=== PATIENT | female | born 1940 | race African-American/Black ===

== ENCOUNTER 2022-03-02 07:32 | Inpatient (IN) | payer MEDICARE ==
[~2022-03-02] VITALS: Ht 167.6 cm; Wt 49.2 kg
[2022-03-02] MEDS ORDERED: INSLAN SQ (07:43)
[2022-03-02] MEDS ORDERED: ATOR10TA PO (07:43)
[2022-03-02] MEDS ORDERED: ACETAMINOPHEN 500 MG TABLET PO ONE (08:00)
[2022-03-02] MEDS ORDERED: SODIUM CHLORIDE 0.9% 1,000 ML IV ONE ×2 (08:00→22:00)
[2022-03-02 08:32] LABS: COVID AG,FIA SOURCE NASOPHARYNGEAL
[2022-03-02 08:45] LABS: BASOPHILS % (AUTO) 0.5 % (0.0-2.0); EOSINOPHILS % (AUTO) 0.5 % (1.0-6.0); HEMATOCRIT 42.7 % (36-46); HEMOGLOBIN 13.9 g/dL (12.0-16.0); LYMPHOCYTES % (AUTO) 15.9 % (22.0-44.0); MEAN CORPUSCULAR HEMOGLOBIN 31.6 pg (26.0-34.0); MEAN CORPUSCULAR HGB CONC 32.6 G/dL (31.0-37.0); MEAN CORPUSCULAR VOLUME 97 fL (80-100); MONOCYTES # (AUTO) 0.5 K/uL (0.1-1.0); MONOCYTES % (AUTO) 7.8 % (2.0-9.0); NEUTROPHILS # (AUTO) 4.7 K/uL (1.8-7.7); NEUTROPHILS % (AUTO) 75.3 % (40.0-70.0); PLATELET COUNT (AUTO) 130 K/uL (150-450); RED CELL DISTRIBUTION WIDTH 14.6 % (11.5-14.5)
[2022-03-02 08:48] LABS: CREATININE 1.31 mg/dL (0.60-1.30); POTASSIUM 4.5 mmol/L (3.5-5.1)
[2022-03-02 08:51] LABS: APPEARANCE,URINE CLEAR (CLEAR); BILIRUBIN,URINE NEGATIVE (NEGATIVE); GLUCOSE, URINE (UA) >=1000 mg/dL (NEGATIVE); KETONES,URINE =>150 mg/dL (NEGATIVE); LEUKOCYTE ESTERASE ,URINE NEGATIVE (NEGATIVE); NITRATE,URINE NEGATIVE (NEGATIVE); OCCULT BLOOD,URINE NEGATIVE (NEGATIVE); PROTEIN,URINE 30-70 mg/dL (NEGATIVE); SPECIFIC GRAVITIY, URINE 1.025 (1.003-1.030); UROBILINOGEN,URINE <=1.0 mg/dL (<=1.0)
[2022-03-02 08:55] LABS: INFLUENZA TYPE A NEGATIVE FOR TYPE A (NEGATIVE); INFLUENZA TYPE B NEGATIVE FOR TYPE B (NEGATIVE)
[2022-03-02 08:56] LABS: PLATELET MORPHOLOGY COMMENT LARGE PLTS PRESENT
[2022-03-02] MEDS ORDERED: INSULIN REGULAR, HUMAN 100 UNITS in SODIUM CHLORIDE 0.9% 99 ML IV PRN ×2 (09:00)
[2022-03-02] MEDS ORDERED: SODIUM CHLORIDE 0.45% 1,000 ML IV PRN (09:00)
[2022-03-02] MEDS ORDERED: POTASSIUM CHL 20 MEQ/0.45% NS 1,000 ML IV PRN (09:00)
[2022-03-02] MEDS ORDERED: SODIUM CHLORIDE 0.9% 1,000 ML IV SCH (09:00)
[2022-03-02] MEDS ORDERED: DEXTROSE 5%-0.45% SODIUM CHL 1,000 ML IV PRN (09:00)
[2022-03-02] MEDS ORDERED: POTASSIUM CHLORIDE 40 MEQ in SODIUM CHLORIDE 0.45% 1,000 ML IV PRN (09:00)
[2022-03-02] MEDS ORDERED: DEXTROSE 50%-WATER 25 GM/50 ML SYRINGE IVP PRN (09:00)
[2022-03-02 09:02] LABS: BACTERIA,URINE None Seen /HPF (None Seen); HYALINE CASTS, URINE 0-2 /LPF (None Seen); RBC,URINE None Seen /HPF (0-2); WBC,URINE None Seen /HPF (0-5)
[2022-03-02 09:25] LABS: MAGNESIUM 2.2 mg/dL (1.80-2.40)
[2022-03-02] MEDS ORDERED: ONDANSETRON HCL 4 MG/2 ML VIAL IVP PRN (09:45)
[2022-03-02] MEDS ORDERED: ACETAMINOPHEN 325 MG TABLET PO PRN (09:45)
[2022-03-02] MEDS ORDERED: BISACODYL 10 MG RECTAL RECTAL SUPPOSITORY PR PRN (09:45)
[2022-03-02] MEDS ORDERED: IPRATROPIUM BROMIDE 0.5 MG/2.5 ML NEB SOLUTION NEB PRN (09:45)
[2022-03-02] MEDS ORDERED: ALBUTEROL SULFATE 2.5 MG/0.5 ML NEB SOLUTION NEB PRN (09:45)
[2022-03-02] MEDS: PANTOPRAZOLE SODIUM 40 MG DR TABLET PO SCH (09:56)
[2022-03-02 15:29] LABS: ANION GAP 16 mmol/L (8-16); CARBON DIOXIDE 15 mmol/L (22-29); CHLORIDE 112 mmol/L (98-107); CREATININE 1.03 mg/dL (0.60-1.30); GLUCOSE,RANDOM 138 mg/dL (70-110); POTASSIUM 4.3 mmol/L (3.5-5.1); SODIUM SERUM 143 mmol/L (136-145); UREA NITROGEN, BLOOD 21 mg/dL (7-18)
[2022-03-02 15:30] LABS: GLOMERULAR FILTR. RATE CALC > 60 mL/min (>60)
[2022-03-02 15:51] LABS: GLUCOSE,POINT OF CARE 128 MG/DL (70-110)
[2022-03-02 15:51] LABS: GLUCOSE,POINT OF CARE 115 MG/DL (70-110)
[2022-03-02 17:30] VITALS: BP 149/79
[2022-03-02 19:47] LABS: GLUCOSE,POINT OF CARE 75 MG/DL (70-110)
[2022-03-02 19:47] LABS: GLUCOSE,POINT OF CARE 83 MG/DL (70-110)
[2022-03-02 19:47] LABS: GLUCOSE,POINT OF CARE 71 MG/DL (70-110)
[2022-03-02 20:00] VITALS: BP 141/60
[2022-03-02] MEDS: DOCUSATE SODIUM 100 MG CAPSULE PO SCH (21:00)
[2022-03-02 21:10] LABS: ANION GAP 14 mmol/L (8-16); CALCIUM, TOTAL 9.1 mg/dL (8.8-10.5); CARBON DIOXIDE 19 mmol/L (22-29); CHLORIDE 110 mmol/L (98-107); CREATININE 0.97 mg/dL (0.60-1.30); GLUCOSE,RANDOM 112 mg/dL (70-110); POTASSIUM 4.1 mmol/L (3.5-5.1); SODIUM SERUM 143 mmol/L (136-145); UREA NITROGEN, BLOOD 18 mg/dL (7-18)
[2022-03-02 21:11] LABS: GLOMERULAR FILTR. RATE CALC > 60 mL/min (>60)
[2022-03-03] VITALS: BP 146/66
[2022-03-03] MEDS ORDERED: DEXTROSE 50%-WATER 25 GM/50 ML SYRINGE IVP PRN
[2022-03-03 00:17] LABS: GLUCOSE,POINT OF CARE 93 MG/DL (70-110)
[2022-03-03] MEDS: INSULIN LISPRO 100 UNITS/ML SQ PRN ×4 (00:40→17:02)
[2022-03-03 00:45] LABS: GLUCOSE,POINT OF CARE 106 MG/DL (70-110)
[2022-03-03 00:48] LABS: ANION GAP 17 mmol/L (8-16); CALCIUM, TOTAL 8.5 mg/dL (8.8-10.5); CARBON DIOXIDE 15 mmol/L (22-29); CHLORIDE 109 mmol/L (98-107); CREATININE 0.91 mg/dL (0.60-1.30); GLUCOSE,RANDOM 176 mg/dL (70-110); POTASSIUM 3.8 mmol/L (3.5-5.1); SODIUM SERUM 141 mmol/L (136-145); UREA NITROGEN, BLOOD 14 mg/dL (7-18)
[2022-03-03 01:00] LABS: GLOMERULAR FILTR. RATE CALC > 60 mL/min (>60)
[2022-03-03 01:56] LABS: GLUCOSE,POINT OF CARE 156 MG/DL (70-110)
[2022-03-03 04:00] VITALS: BP 141/65
[2022-03-03 06:01] LABS: GLUCOSE,POINT OF CARE 100 MG/DL (70-110)
[2022-03-03 06:51] LABS: ALANINE AMINOTRANSFERASE 11 U/L (12-78); ALBUMIN 3.3 g/dL (3.4-5.0); ALKALINE PHOSPHATASE 98 U/L (46-116); ANION GAP 15 mmol/L (8-16); ASPARTATE AMINOTRANSFERASE 17 U/L (15-37); BILIRUBIN,TOTAL 0.4 mg/dL (0.1-1.0); CALCIUM, TOTAL 9.2 mg/dL (8.8-10.5); CARBON DIOXIDE 15 mmol/L (22-29); CHLORIDE 109 mmol/L (98-107); CREATININE 0.88 mg/dL (0.60-1.30); GLUCOSE,RANDOM 128 mg/dL (70-110); POTASSIUM 4.1 mmol/L (3.5-5.1); SODIUM SERUM 139 mmol/L (136-145); UREA NITROGEN, BLOOD 12 mg/dL (7-18)
[2022-03-03 06:55] LABS: GLOMERULAR FILTR. RATE CALC > 60 mL/min (>60)
[2022-03-03 08:00] VITALS: BP 142/59
[2022-03-03 08:45] LABS: BASOPHILS % (AUTO) 0.5 % (0.0-2.0); EOSINOPHILS % (AUTO) 0.7 % (1.0-6.0); HEMATOCRIT 42.8 % (36-46); HEMOGLOBIN 14.1 g/dL (12.0-16.0); LYMPHOCYTES # (AUTO) 0.9 K/uL (1.0-4.8); MEAN CORPUSCULAR HEMOGLOBIN 31.9 pg (26.0-34.0); MEAN CORPUSCULAR HGB CONC 32.9 G/dL (31.0-37.0); MEAN CORPUSCULAR VOLUME 97 fL (80-100); MONOCYTES # (AUTO) 0.7 K/uL (0.1-1.0); MONOCYTES % (AUTO) 9.6 % (2.0-9.0); NEUTROPHILS % (AUTO) 77.2 % (40.0-70.0); RED BLOOD CELL COUNT(AUTO) 4.42 MIL/uL (4.00-5.20); RED CELL DISTRIBUTION WIDTH 14.7 % (11.5-14.5)
[2022-03-03] MEDS: DOCUSATE SODIUM 100 MG CAPSULE PO SCH (08:51)
[2022-03-03 08:52] LABS: PLATELET COUNT (AUTO) 116 K/uL (150-450)
[2022-03-03] MEDS: PANTOPRAZOLE SODIUM 40 MG DR TABLET PO SCH (08:52)
[2022-03-03] MEDS ORDERED: ATORVASTATIN CALCIUM 10 MG TABLET PO SCH (09:00)
[2022-03-03 09:16] LABS: GLUCOSE,POINT OF CARE 146 MG/DL (70-110)
[2022-03-03] MEDS ORDERED: INSULIN GLARGINE,HUM.REC.ANLOG 100 UNITS/ML SQ ONE (09:45)
[2022-03-03] MEDS ORDERED: SODIUM CHLORIDE 0.9% 1,000 ML IV SCH (09:45)
[2022-03-03 10:01] LABS: HEMOGLOBIN A1C 13.9 % (3.8-5.6)
[2022-03-03 10:34] LABS: ABG BASE EXCESS -16.2 mmol/L (-2.0-3.0); ABG CARBOXYHEMOGLOBIN 0.2 % (0.0-1.5); ABG METHEMOGLOBIN 0.5 % (0.0-1.5); ABG OXYGEN CONTENT 19.9 mL/dL (15.0-23.0); ABG OXYHEMOGLOBIN 97.3 % (94.0-100.0); ABG PCO2 21 mmHg (35-45); ABG PH 7.311 (7.35-7.450); ABG TOTAL HEMOGLOBIN 14.5 G/dL (12.0-18.0); PO2, ARTERIAL BG 100.5 mmHg (75.0-83.0); SOURCE, BLOOD GAS ARTERIAL; TEMPERATURE, FAHRENHEIT, BG 97.7 FAHREN (96.0-98.6)
[2022-03-03 10:36] LABS: SITE, BLOOD GAS RT RADIAL
[2022-03-03 10:37] LABS: ABG A-A DIFF O2 24.9 mmHg (10-20.0); O2 DEVICE,BLOOD GAS ROOM AIR (ROOM AIR)
[2022-03-03 10:40] LABS: FREE T4 (FREE THYROXINE) 1.38 ng/dL (0.76-1.46); THYROID STIMULATING HORMONE 1.05 uIU/mL (0.36-3.74)
[2022-03-03 12:00] VITALS: BP 134/61
[2022-03-03 12:32] LABS: ANION GAP 17 mmol/L (8-16); CALCIUM, TOTAL 8.9 mg/dL (8.8-10.5); CARBON DIOXIDE 17 mmol/L (22-29); CHLORIDE 107 mmol/L (98-107); CREATININE 0.93 mg/dL (0.60-1.30); GLUCOSE,RANDOM 174 mg/dL (70-110); POTASSIUM 3.4 mmol/L (3.5-5.1); SODIUM SERUM 141 mmol/L (136-145); UREA NITROGEN, BLOOD 10 mg/dL (7-18)
[2022-03-03 12:33] LABS: GLOMERULAR FILTR. RATE CALC > 60 mL/min (>60)
[2022-03-03] MEDS ORDERED: POTASSIUM CHLORIDE 10% 40 MEQ/30 ML LIQUID UDCUP PO ONE (13:30)
[2022-03-03 13:49] LABS: ALBUMIN 3.3 g/dL (3.4-5.0)
[2022-03-03 16:00] VITALS: BP 145/66
[2022-03-03 17:06] LABS: GLUCOSE,POINT OF CARE 170 MG/DL (70-110)
[2022-03-03 18:10] LABS: GLUCOSE,POINT OF CARE 207 MG/DL (70-110)
[2022-03-03 19:31] LABS: GLUCOMETER DEV NAME(LOC) ERT.5; GLUCOSE,POINT OF CARE 135 MG/DL (70-110)
[2022-03-03 19:31] LABS: GLUCOMETER DEV NAME(LOC) ERT.5; GLUCOSE,POINT OF CARE 297 MG/DL (70-110)
[2022-03-03 19:31] LABS: GLUCOMETER DEV NAME(LOC) ERT.5; GLUCOSE,POINT OF CARE 216 MG/DL (70-110)
[2022-03-03 19:31] LABS: GLUCOMETER DEV NAME(LOC) ERT.5; GLUCOSE,POINT OF CARE 93 MG/DL (70-110)
[2022-03-03 19:31] LABS: GLUCOMETER DEV NAME(LOC) ERT.5; GLUCOSE,POINT OF CARE 208 MG/DL (70-110)
[2022-03-03 19:31] LABS: GLUCOMETER DEV NAME(LOC) ERT.5; GLUCOSE,POINT OF CARE 374 MG/DL (70-110)
[2022-03-04] MEDS ORDERED: INSULIN GLARGINE,HUM.REC.ANLOG 100 UNITS/ML SQ SCH (09:00)
== END 2022-03-03 19:00 | disposition short-term general hospital (02) | DRG 637 ==
LOC: EMS 07:36 → EDBD 07:36 → ICU 16:05
PROVIDERS: ADMIT Internal Medicine; ATTEND Internal Medicine
DX: E11.10 Type 2 diabetes mellitus with ketoacidosis without coma (principal); N17.0 Acute kidney failure with tubular necrosis; E03.9 Hypothyroidism, unspecified; E83.52 Hypercalcemia; F03.90 Unspecified dementia, unspecified severity, without behavioral disturbance, psychotic disturbance, mood disturbance, and anxiety; E78.00 Pure hypercholesterolemia, unspecified; Z20.822 Contact with and (suspected) exposure to COVID-19; Z79.4 Long term (current) use of insulin; Z79.899 Other long term (current) drug therapy
CPT/HCPCS: 36600; 51701; 71045; 80048; 80053; 81001; 82040; 82805; 82962; 83036; 83735; 84132; 84439; 84443; 85025; 87081; 87804; 93005; 97162; 99291; G0378; J1815; J3480; J7030; J7050; 36415-L1; 36415-TC

== ENCOUNTER 2022-09-01 08:53 | Emergency (ER) | payer MEDICARE ==
[~2022-09-01] VITALS: Ht 167.6 cm; Wt 43.6 kg
[~2022-09-01 08:53] MED LIST: ATOR10TA PO; INSLAN SQ
[2022-09-01 08:59] VITALS: BP 132/57; PULSE 60; RESP 16; TEMP 98.9
[2022-09-01] MEDS ORDERED: BACITRACIN 0.9 GM PACKET OINTMENT TP ONE (09:45)
== END 2022-09-01 10:16 | disposition home or self-care (01) ==
LOC: EMS 09:07
DX: S60.451A Superficial foreign body of left index finger, initial encounter (principal); M79.89 Other specified soft tissue disorders; F03.90 Unspecified dementia, unspecified severity, without behavioral disturbance, psychotic disturbance, mood disturbance, and anxiety; E11.9 Type 2 diabetes mellitus without complications; E78.00 Pure hypercholesterolemia, unspecified; W45.8XXA Other foreign body or object entering through skin, initial encounter; Y93.89 Activity, other specified; Y92.89 Other specified places as the place of occurrence of the external cause; Y99.8 Other external cause status
CPT/HCPCS: 99284; Z7502; Z7610

== ENCOUNTER 2023-04-12 16:45 | Emergency (ER) | payer MEDICARE ==
[~2023-04-12] VITALS: Ht 160 cm; Wt 55.0 kg
[2023-04-12 16:55] VITALS: BP 160/67; PULSE 75; RESP 16; TEMP 96.9
[2023-04-12 17:18] LABS: GLUCOMETER DEV NAME(LOC) ER.6; GLUCOSE,POINT OF CARE 193 MG/DL (70-110)
[2023-04-12] MEDS ORDERED: CEPH-558 PO (22:09)
[2023-04-12] MEDS: BACITRACIN 0.9 GM PACKET OINTMENT TP ONE (22:14)
[2023-04-12] MEDS: CEPHALEXIN MONOHYDRATE 500 MG CAPSULE PO ONE (22:15)
[2023-04-12] MEDS: PERTUSS(ACELL),DIPH,TET/PF 0.5 ML SYRINGE [ADULT] IM. ONE (22:24)
== END 2023-04-12 22:27 | disposition home or self-care (01) ==
LOC: EMS 16:45
DX: S62.633A Displaced fracture of distal phalanx of left middle finger, initial encounter for closed fracture (principal); W23.0XXA Caught, crushed, jammed, or pinched between moving objects, initial encounter; Y93.89 Activity, other specified; Y92.89 Other specified places as the place of occurrence of the external cause; Y99.8 Other external cause status
CPT/HCPCS: 12002; 82962; 90471; 90715; 99283

== ENCOUNTER 2023-04-24 07:14 | Emergency (ER) | payer MEDICARE ==
[~2023-04-24] VITALS: Ht 162.6 cm; Wt 61.4 kg
[~2023-04-24 07:14] MED LIST changes: +CEPH-558 PO
[2023-04-24 09:30] VITALS: TEMP 98
[2023-04-24] MEDS ORDERED: QUET25TA36 PO (09:33)
[2023-04-24] MEDS ORDERED: INSU100I15 SQ (09:33)
[2023-04-24] MEDS ORDERED: LISI40TA9 PO (09:33)
[2023-04-24] MEDS ORDERED: METO25 PO (09:33)
[2023-04-24] MEDS: AmLODIPine BESYLATE 5 MG TABLET PO ONE (09:58)
[2023-04-24 10:36] LABS: BASOPHILS % (AUTO) 0.5 % (0.0-2.0); EOSINOPHILS % (AUTO) 2.4 % (1.0-6.0); HEMATOCRIT 34.9 % (36-46); HEMOGLOBIN 11.5 g/dL (12.0-16.0); LYMPHOCYTES # (AUTO) 0.9 K/uL (1.0-4.8); LYMPHOCYTES % (AUTO) 26.9 % (22.0-44.0); MEAN CORPUSCULAR HEMOGLOBIN 34.2 pg (26.0-34.0); MEAN CORPUSCULAR HGB CONC 33.1 G/dL (31.0-37.0); MEAN CORPUSCULAR VOLUME 103 fL (80-100); MONOCYTES # (AUTO) 0.4 K/uL (0.1-1.0); MONOCYTES % (AUTO) 12.6 % (2.0-9.0); NEUTROPHILS # (AUTO) 1.9 K/uL (1.8-7.7); NEUTROPHILS % (AUTO) 57.6 % (40.0-70.0); PLATELET COUNT (AUTO) 167 K/uL (150-450); RED BLOOD CELL COUNT(AUTO) 3.38 MIL/uL (4.00-5.20); RED CELL DISTRIBUTION WIDTH 12.7 % (11.5-14.5); WHITE BLOOD COUNT (AUTO) 3.3 K/uL (4.5-11.0)
[2023-04-24 10:41] LABS: ANION GAP 5 mmol/L (8-16); CALCIUM, TOTAL 9.2 mg/dL (8.8-10.5); CARBON DIOXIDE 30 mmol/L (22-29); CHLORIDE 102 mmol/L (98-107); CREATININE 0.76 mg/dL (0.60-1.30); GLOMERULAR FILTR. RATE CALC > 60 mL/min (>60); GLUCOSE,RANDOM 260 mg/dL (70-110); POTASSIUM 3.9 mmol/L (3.5-5.1); SODIUM SERUM 137 mmol/L (136-145); UREA NITROGEN, BLOOD 15 mg/dL (7-18)
[2023-04-24 10:45] LABS: RBC MORPHOLOGY COMMENT ABNORMAL RBC MORPH
[2023-04-24 10:46] LABS: BILIRUBIN,TOTAL 0.2 mg/dL (0.1-1.0)
[2023-04-24 10:47] LABS: ALANINE AMINOTRANSFERASE 65 U/L (12-78); ALBUMIN 3.2 g/dL (3.4-5.0); ALKALINE PHOSPHATASE 62 U/L (46-116); ASPARTATE AMINOTRANSFERASE 40 U/L (15-37); TOTAL PROTEIN, SERUM 6.4 g/dL (6.4-8.2)
[2023-04-24] MEDS: QUEtiapine FUMARATE 25 MG TABLET PO ONE (12:55)
[2023-04-24] MEDS: LORazepam 2 MG/ML VIAL IM ONE (13:22)
[2023-04-24] MEDS: PIPERACILLIN/TAZO 3.375 GM/D5W 50 ML IV SCH (16:00)
[2023-04-24] MEDS ORDERED: CEPH-558 PO (16:54)
[2023-04-24] MEDS ORDERED: SULF-261 PO (16:54)
[2023-04-24] MEDS: HALOPERIDOL LACTATE 5 MG/ML VIAL IVP ONE (17:27)
[2023-04-24 17:28] VITALS: BP 168/80; PULSE 70; RESP 16
== END 2023-04-24 17:29 | disposition home or self-care (01) ==
LOC: EMS 07:14
DX: S62.633A Displaced fracture of distal phalanx of left middle finger, initial encounter for closed fracture (principal); E11.9 Type 2 diabetes mellitus without complications; E78.00 Pure hypercholesterolemia, unspecified; F03.90 Unspecified dementia, unspecified severity, without behavioral disturbance, psychotic disturbance, mood disturbance, and anxiety; X58.XXXA Exposure to other specified factors, initial encounter; Y93.89 Activity, other specified; Y92.89 Other specified places as the place of occurrence of the external cause; Y99.8 Other external cause status
CPT/HCPCS: 99284; 80053; 85025; 36415; 73130; 96372; J2060